=== PATIENT | male | born 2005 | race American Indian/Alaskan Native ===

== ENCOUNTER 2025-06-27 00:05 | Emergency (ER) | payer MEDICAID, SELFPAY ==
[2025-06-27 00:07] VITALS: BMI 27.3
--- NOTE | 2025-06-27 00:15 | EKG_ITS ---
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
[2025-06-27 00:28] VITALS: BP 134/74; PULSE 58; RESP 18; TEMP 36.8; O2SAT 97
--- NOTE | 2025-06-27 01:11 | EDNOTE_ITS ---
ED Anxiety RME/HPI General Chief Complaint: General Adult/Misc Complain Stated Complaint: NUMBNESS R SHOULDER AND R CHEST Time Seen by Provider: 06/27/25 01:09 Arrival date/time: 06/27/25 00:05 20M with history of anxiety presents to ED with 1 day of intermittent R chest pain/tightness and RUE numbness/tingling. There is also some RLE numbness/tingling. Finally, there is some ab pain and N/V, as well as shakiness. Patient states this all started while playing video games. No trigger except for increased stress in life recently. Patient feels better now compared to onset several hours ago. Limitations: no limitations Related Data Allergies Allergy/AdvReac Type Severity Reaction Status Date / Time NKA* Allergy Uncoded 06/27/25 00:12 Review of Systems Review of Systems Systems Reviewed: All systems reviewed, normal except as documented Constitutional Constitutional: Reports system reviewed and no additional complaints, except as documented, Denies fever(s) and Denies headache(s) ENT Ears, Nose, Mouth, and Throat: Denies disequilibrium and Denies headache(s) Cardiovascular Cardiovascular: Reports system reviewed and no additional complaints, except as documented, Reports as per HPI, Reports chest pain and Denies dyspnea Respiratory Respiratory: Reports system reviewed and no additional complaints, except as documented, Denies cough and Denies dyspnea Gastrointestinal Gastrointestinal: Reports system reviewed and no additional complaints, except as documented, Reports as per HPI, Reports abdominal pain, Reports nausea and Reports vomiting Musculoskeletal Musculoskeletal: Reports numbness and Reports tingling Neurologic Neurologic: Reports system reviewed and no additional complaints, except as documented, Reports as per HPI, Denies confusion, Denies disequilibrium, Denies headache(s), Reports numbness and Reports tingling Psychiatric Psychiatric: Denies confusion Past Medical History Social History SMOKING STATUS: Never smoker ED Exam General Limitations: Present no limitations General appearance: Present alert, in no apparent distress and anxious (very) Head Head exam: Present atraumatic Eye Eye exam: Present normal appearance, PERRL and EOMI ENT ENT exam: Present normal exam, normal oropharynx and mucous membranes moist Neck Neck exam: Present normal inspection, full ROM and trachea midline Chest Chest inspection: Present normal inspection and symmetric chest wall rise Respiratory Respiratory exam: Present normal lung sounds bilaterally Cardiovascular Cardiovascular exam: Present regular rate, normal rhythm and normal heart sounds Abdominal Exam Abdominal exam: Present soft and normal bowel sounds Extremities Exam Extremities exam: Present normal inspection and full ROM Back Exam Back exam: Present normal inspection and full ROM Neurological Exam Neurological exam: Present alert, oriented X3 and CN II-XII intact Psychiatric Psychiatric exam: Present normal affect and normal mood Skin Skin exam: Present warm, dry, intact and normal color Course Quality Measures none Orders Category Date Time Status EKG (ED ONLY) *Do not use* NOW Care 06/27/25 00:15 Completed EKG (ED Only) Stat Exams 06/27/25 00:15 Draft Diazepam [Valium] Med 06/27/25 01:09 Once 5 mg PO X1 ONE Vital Signs Vital signs: Vital Signs Temperature 98.3 F 06/27/25 00:28 Pulse Rate 58 L 06/27/25 00:28 Respiratory Rate 18 06/27/25 00:28 Blood Pressure 134/74 H 06/27/25 00:28 Pulse Oximetry (%) 97 06/27/25 00:28 Oxygen Delivery Method Room Air 06/27/25 00:28 Anxiety MDM Narrative MDM Narrative: 20M with history of anxiety presents to ED with 1 day of intermittent R chest pain/tightness and RUE numbness/tingling. There is also some RLE numbness/tingling. Finally, there is some ab pain and N/V, as well as shakiness. Patient states this all started while playing video games. No trigger except for increased stress in life recently. Patient feels better now compared to onset several hours ago. Physical exam reveals normal pupil response and EOM. CN II-XII grossly intact. Neg pronator drift. Speech normal. Gait normal. Clear lungs and normal WOB. RRR. Patient is afebrile, alert, but very anxious. EKG is sinus flor of 58. Valium improved symptoms. Patient data External records reviewed:: [facility] previous records Clinical information provided by:: patient Social determinants that could affect healthcare access:: mental health Patient has the following chronic illnesses:: anxiety How is presenting disease/condition affected by chronic disease/condition?: caused by Evaluation data The following diagnostics were reviewed and interpreted by me:: EKG tracing(s) Lab and/or radiology exams considered but not ordered:: ordered Interpretation Summary: above Medications / Prescriptions Medications or Prescriptions considered but not ordered:: ordered Medication administrations:: Medication Administration History Diazepam (Diazepam 5 Mg Tablet) 5 mg PO X1 ONE Stop: 06/27/25 01:10 Consultations Consultation(s) initiated? (list below): No Diagnosis Differential diagnosis anxiety: hyperventilation, panic disorder and acute anxiety Most likely diagnosis given after review of the tests above:: panic attack Admission Indicated Admission indicated?: not indicated Admission Request Was there a request for admission?: No Disposition Plan Disposition Plan: Discharge Discharge Attestation Discharge Attestation: The patient and all family members were given an opportunity to ask questions and understood the discharge instructions. Discharge instructions specifically effects, indications for sooner follow up or return to the emergency department, and the expected course of current diagnosis. Patient condition: Stable Discharge Plan Plan Patient Disposition: HOME (Self Care) Discharge Disposition comment: Stable Prescriptions/Referrals Referrals: George Mckeon PA-C [Primary Care Provider] - In 1 week Problem List Clinical Impression: Panic attack Patient/Caregiver Discharge Instructions Education Materials: Your Body's Response to Anxiety, Panic Disorder Tx, ED Panic Attack Additional Instructions: Please follow-up with PCP within 24-48 hours and return immediately if symptoms worsen. Print Language: Bermudian Stand Alone Forms: Patient Portal Info Letter MICHAEL Supervising Physician MICHAEL Supervising Physician: Dr. Bah
[2025-06-27 01:39] VITALS: BP 124/58; PULSE 70; RESP 14; TEMP 37; O2SAT 99
[2025-06-27] MEDS: DIAZEPAM 5 MG TABLET PO (01:41)
== END 2025-06-27 02:47 | disposition home or self-care (01) ==
PROVIDERS: Emergency Provider Emergency Medicine; PCP Physician Assistant
DX: F41.0 Panic disorder [episodic paroxysmal anxiety] (principal); R00.1 Bradycardia, unspecified
CPT/HCPCS: 93005; 99283; A9270

== ENCOUNTER 2025-06-27 17:53 | Emergency (ER) | payer MEDICAID, SELFPAY ==
--- NOTE | 2025-06-27 18:02 | EDNOTE_ITS ---
ED General RME/HPI General Chief complaint: Nausea/Vomiting/Diarrhea Stated complaint: NAUSEA AND VOMITING Time Seen by Provider: 06/27/25 18:01 Arrival date/time: 06/27/25 17:53 CC: Nausea vomit HPI patient presents to the ER via EMS who report active vomiting at the [facility], the patient is on hydroxyzine and famotidine secondary to nausea and vomiting from anxiety. Patient was seen here yesterday, then followed up in the clinic after signing out from this facility AMA took the medicines promptly threw up and called 911 currently the patient is awake alert oriented complaining of chest pressure EMS reports stable vital signs no tachycardia patient is awake alert oriented not in any acute distress. Related Data Allergies Allergy/AdvReac Type Severity Reaction Status Date / Time No Known Allergies Allergy Verified 06/30/25 23:34 Review of Systems Review of Systems Narrative Review of Systems: GEN: No fever, no chills, no weight loss EYES: No discharge, no visual changes, no pain HEENT: No ear pain, no congestion, no sore throat PULM: No shortness of breath, no cough, no congestion CV: No chest pain, no dyspnea on exertion, no palpitations GI: + nausea, + vomiting, no diarrhea, no pain, no constipation : No frequency, no urgency, no dysuria MUSC/SKEL: No joint pain, no back pain SKIN: No rash PSYCH: No hallucinations, no depression HEME/LYMPH: No easy bleeding or bruising tendencies NEURO: No weakness, no headache Past Medical History Social History SMOKING STATUS: Never smoker ED Exam Narrative Physical exam: [General: Not in any acute distress Head normocephalic HEENT: Within acceptable limits Neck is supple nontender Chest equal chest rise nontender to palpation Respiratory: Clear to auscultation no wheezes crackles or rubs CV: Rate rhythm is regular no murmurs rubs or clicks Abdomen is soft nontender no masses positive bowel sounds all 4 quadrants Back: No CVA tenderness no spinous process tenderness from cervical spine thoracic and lumbar spine Skin: Intact no petechiae rash induration ulceration or crepitus Extremities: Moving all extremity against resistance cap refill less than 2 seconds neurosensory intact Neuro: Awake alert oriented x3 Glascow coma 15 no focal deficits] Course Course Course Narrative: Reexamination of this patient at 2100 in room 15, the patient has become all of a sudden very anxious, stating he is feeling chills, states that he has nausea all over his body . Patient is awake alert oriented laboratory results are gr ossly unremarkable this time to give him antianxiety medicine. Patient stops all of his and takes once he is in the directed subject specific conversation regarding himself. This was witnessed by his sister at bedside. In addition to his behavior may be attributed to cannabis induced hyperemesis. Quality Measures none Orders Category Date Time Status CBC Stat Lab 06/27/25 18:21 Completed CMP [Comprehensive Metabolic Panel] Stat Lab 06/27/25 18:21 Completed Drug Screen,Urine Stat Lab 06/27/25 18:47 Completed LORazepam [Ativan] Med 06/27/25 21:00 Discontinued 0.5 mg PO X1 ONE Vital Signs Vital signs: Vital Signs Temperature 98.1 F 06/27/25 18:07 Pulse Rate 50 L 06/27/25 18:07 Respiratory Rate 18 06/27/25 18:07 Blood Pressure 120/69 06/27/25 18:07 Pulse Oximetry (%) 98 06/27/25 18:07 Oxygen Delivery Method Room Air 06/27/25 18:07 Discharge Plan Plan Patient Disposition: HOME (Self Care) Patient condition on transfer: Stable Prescriptions/Referrals Referrals: Jeffy Agarwal MD [Physician] - In 1 week No Primary/Family,Physician [Primary Care Provider] - In 1 week Problem List Clinical Impression: Panic attack Patient/Caregiver Discharge Instructions Education Materials: ED Anxiety Reaction Additional Instructions: Take the medicines prescribed by your clinic. If there is a worsening of symptoms follow-up with your primary care doctor Print Language: Pashto Stand Alone Forms: Sabiha Award Info., Work/School Release, Patient Portal Info Letter PA/EXECUTIVE CHEF Supervising Physician PA/EXECUTIVE CHEF Supervising Physician: Shaun Bradshaw ENP [facility] Clinical Information Provided by patient and EMS Medical Records Reviewed [facility] and EMS Meds/Rx Considered, not Ordered None Labs/Rad/Tests considered, not Ordered None Chronic Illness/Social Conditions which may negatively complicate care or outcome(s)-explain: None or not applicable EKG EKG not done Lab Interpretation Labs: interpreted by il Lab(s) interpretation(s): CBC shows a leukocytosis of 11.5 no other anemia thrombocytopenia CMP shows no significant electrolyte imbalances renal impairment transaminitis or T. bili elevation. Tox is positive for benzos and marijuana. Medication Administration(s) Medication Administration History Discontinued Medications Lorazepam (Lorazepam 0.5 Mg Tablet) 0.5 mg PO X1 ONE Stop: 06/27/25 21:01 Last Admin: 06/27/25 21:06 Dose: 0.5 mg Documented By: CHRISTEL
[2025-06-27 18:03] VITALS: PULSE 60; RESP 16; O2SAT 99
[2025-06-27 18:07] VITALS: BP 120/69; PULSE 50; RESP 18; TEMP 36.7; O2SAT 98
[2025-06-27 18:08] VITALS: BMI 27.1
[2025-06-27 18:28] LABS: Basophils # (Auto) 0.0 Thou/mm3 (0.0-0.2); Basophils % (Auto) 0 % (0-2.5); Eosinophils # (Auto) 0.0 Thou/mm3 (0.0-0.5); Eosinophils % (Auto) 0 % (0-10); Hematocrit 46.1 % (41.0-53.0); Hemoglobin 15.5 g/dL (13.5-16.0); Immature Granulocytes Auto 0.02 Thou/mm3 (0.00-0.00); Lymphocytes # (Auto) 1.2 Thou/mm3 (1.0-4.8); Lymphocytes % (Auto) 11 % (10-50); Mean Corpuscular HGB Conc 33.6 g/dl (31.0-37.0); Mean Corpuscular Hemoglobin 29.4 pg (25.0-35.0); Mean Corpuscular Volume 87 fL (80-100); Monocytes # (Auto) 0.7 Thou/mm3 (0.0-0.8); Monocytes % (Auto) 6 % (0-12); Neutrophils # (Auto) 9.6 Thou/mm3 (1.8-7.7); Neutrophils % (Auto) 83 % (37-80); Nucleated Red Blood Cell # 0.00 Thou/mm3 (0.00-0.00); Nucleated Red Blood Cell % 0 /100 WBC (0); Platelet Count 259 Thou/mm3 (140-440); RDW Standard Deviation 42.1 fL (35.1-43.9); Red Blood Count 5.28 Miln/mm3 (4.50-5.90); White Blood Count 11.5 Thou/mm3 (4.5-11.0)
[2025-06-27 19:05] LABS: Alanine Aminotransferase 35 U/L (10-49); Albumin, Serum 5.4 gm/dL (3.5-5.0); Albumin/Globulin Ratio 1.7 (1.2-2.2); Alkaline Phosphatase 116 U/L (46-116); Anion Gap 12 (7-16); Aspartate Amino Transferase 22 U/L (0-34); BUN/Creatinine Ratio 5 Ratio (12-20); Bilirubin,Total 1.0 mg/dL (0.3-1.2); Blood Urea Nitrogen < 5 mg/dL (9-23); Calcium 10.9 mg/dL (8.3-10.6); Calcium (Corrected) 10.9 mg/dL (8.5-10.1); Carbon Dioxide 24.2 mMol/L (20.0-31.0); Chloride 107 mMol/L (98-107); Creatinine (Component) 1.0 mg/dL (0.6-1.3); Estimated Creatinine Clearance 117.8 mL/min (>60); Globulin 3.1 gm/dL (2.3-3.5); Glucose 97 mg/dL (74-106); Osmolality,Calculated 282 (275-295); Potassium 4.2 mMol/L (3.4-5.1); Sodium 143 mMol/L (136-145); Total Protein 8.5 gm/dL (5.7-8.2); eGFR > 60 See Note
[2025-06-27 19:49] LABS: Amphetamine/Methamp Scrn,U Negative (Negative); Barbiturate Screen,Urine Negative (Negative); Benzodiazepines Screen,Urine Positive (Negative); Benzoylecgonine Screen, Ur Negative (Negative); Fentanyl Screen,Urine Negative (Negative); Opiate Screen,Urine Negative (Negative); THC Screen,Urine Positive (Negative)
[2025-06-27 20:53] VITALS: BP 124/71; PULSE 60; RESP 18; TEMP 36.6; O2SAT 100
--- NOTE | 2025-06-27 21:16 | PC.NURSE ---
went to give pt d/c instructions he started to have another panic attack stated medication was given yesterday advised he was also prescribed medication that he hasnt taken advised to also take that medication. spoke danielle robin hill advised for him to jomar medication and follow up with primary he was stating what if meds dont work i advised he can always come back but to given them a chance
== END 2025-06-27 21:14 | disposition home or self-care (01) ==
PROVIDERS: Registered Nurse General Practice; Emergency Provider Emergency Medicine
DX: F41.0 Panic disorder [episodic paroxysmal anxiety] (principal)
CPT/HCPCS: 36415; 80053; 80307; 85025; 99283; A9270

== ENCOUNTER 2025-06-30 23:19 | Emergency (ER) | payer MEDICAID, SELFPAY ==
[2025-06-30 23:26] VITALS: BP 128/82; PULSE 64; RESP 18; TEMP 36.8; O2SAT 100
[2025-06-30 23:58] VITALS: BMI 26.1
--- NOTE | 2025-07-01 00:16 | XR_ITS ---
Examination: PA chest single view Technique: Upright PA chest single view Date and time: June 30, 2025, 0026 hrs. Indications: Shortness of breath chest pain today Findings: Normal heart size. Lungs are clear. The osseous structures are intact Impression: No active disease.
--- NOTE | 2025-07-01 00:21 | EDNOTE_ITS ---
ED Chest Pain RME/HPI General Chief Complaint: Chest Pain Stated Complaint: CHEST TIGHTNESS Time Seen by Provider: 07/01/25 00:15 Arrival date/time: 06/30/25 23:19 20M with history of psych/drugs presents to ED with several days of intermittent CP and SOB. Patient has had multiple visits here and at [facility] for this recently. Limitations: no limitations Related Data Allergies Allergy/AdvReac Type Severity Reaction Status Date / Time No Known Allergies Allergy Verified 06/30/25 23:34 Review of Systems Review of Systems Systems Reviewed: All systems reviewed, normal except as documented Constitutional Constitutional: Reports system reviewed and no additional complaints, except as documented, Denies fever(s) and Denies headache(s) ENT Ears, Nose, Mouth, and Throat: Denies disequilibrium and Denies headache(s) Cardiovascular Cardiovascular: Reports system reviewed and no additional complaints, except as documented, Reports as per HPI, Reports chest pain and Reports dyspnea Respiratory Respiratory: Reports system reviewed and no additional complaints, except as documented, Denies cough and Reports dyspnea Gastrointestinal Gastrointestinal: Reports system reviewed and no additional complaints, except as documented, Denies abdominal pain, Denies nausea and Denies vomiting Neurologic Neurologic: Reports system reviewed and no additional complaints, except as documented, Denies confusion, Denies disequilibrium and Denies headache(s) Psychiatric Psychiatric: Denies confusion Past Medical History Social History SMOKING STATUS: Current some day smoker ED Exam General Limitations: Present no limitations General appearance: Present alert, in no apparent distress and anxious (crying) Head Head exam: Present atraumatic Neck Neck exam: Present normal inspection, full ROM and trachea midline Chest Chest inspection: Present normal inspection and symmetric chest wall rise Neurological Exam Neurological exam: Present alert, oriented X3 and CN II-XII intact Psychiatric Psychiatric exam: Present normal affect Skin Skin exam: Present warm, dry, intact and normal color Course Quality Measures none Orders Category Date Time Status EKG (ED ONLY) *Do not use* NOW Care 06/30/25 23:33 Completed EKG (ED Only) Stat Exams 06/30/25 23:32 Ordered US gall bladder Stat Exams 07/01/25 01:58 Taken XR chest 1V portable Stat Exams 07/01/25 00:16 Taken Alcohol, Blood Medical Stat Lab 07/01/25 01:15 Completed CBC Stat Lab 07/01/25 01:15 Completed Comprehensive Metabolic Panel Stat Lab 07/01/25 01:15 Completed D-Dimer Stat Lab 07/01/25 01:15 Completed Lipase Stat Lab 07/01/25 01:15 Completed Troponin I Stat Lab 07/01/25 01:15 Completed Diazepam [Valium] Med 07/01/25 00:16 Discontinued 5 mg PO X1 ONE Vital Signs Vital signs: Vital Signs Temperature 98.3 F 06/30/25 23:26 Pulse Rate 64 06/30/25 23:26 Respiratory Rate 18 06/30/25 23:26 Blood Pressure 128/82 06/30/25 23:26 Pulse Oximetry (%) 100 06/30/25 23:26 Oxygen Delivery Method Room Air 06/30/25 23:26 O2 at 100% on RA and WNLs Chest Pain MDM Narrative MDM Narrative:: 20M with history of psych/drugs presents to ED with several days of intermittent CP and SOB. Patient has had multiple visits here and at [facility] for this recently. Physical exam reveals normal WOB. Patients is afebrile, alert, but anxious/crying. EKG is NSR. Wet CXR read unremarkable pending official report. No leukocytosis. Normal trop and D-dimer. CMP remarkable for elevated LFTs and bili compared to 3 days ago. US Telerad read unremarkable. Valium improved symptoms. Counseled to return on Thursday morning for repeat CMP and possible MRCP. Patient data External records reviewed:: [facility] previous records Clinical information provided by:: patient Social determinants that could affect healthcare access:: mental health Patient has the following chronic illnesses:: anxiety/drug How is presenting disease/condition affected by chronic disease/condition?: exacerbated by Evaluation data The following diagnostics were reviewed and interpreted by me:: lab results, radiology exam(s) and EKG tracing(s) Lab and/or radiology exams considered but not ordered:: ordered Interpretation Summary: above Medications / Prescriptions Medications or Prescriptions considered but not ordered:: ordered Medication administrations:: Medication Administration History Discontinued Medications Diazepam (Diazepam 5 Mg Tablet) 5 mg PO X1 ONE Stop: 07/01/25 00:17 Last Admin: 07/01/25 00:33 Dose: 5 mg Documented By: CVL above Consultations Consultation(s) initiated? (list below): No Diagnosis Chest Pain Differential Diagnosis: fracture of rib, pneumothorax, stable angina, unstable angina pectoris, atypical chest pain, st elevation myocardial infarction, costochondritis, chest pain, biliary colic and other (PE, anxiety/panic attack, CBD stone, elevated bili) Most likely diagnosis given after review of the tests above:: panic attack and elevated bilirubin Admission Indicated Admission indicated?: not indicated Admission Request Was there a request for admission?: No Disposition Plan Disposition Plan: Discharge Discharge Attestation Discharge Attestation: The patient and all family members were given an opportunity to ask questions and understood the discharge instructions. Discharge instructions specifically effects, indications for sooner follow up or return to the emergency department, and the expected course of current diagnosis. Patient condition: Stable Discharge Plan Plan Patient Disposition: HOME (Self Care) Discharge Disposition comment: Stable Prescriptions/Referrals Referrals: George Mckeon PA-C [Primary Care Provider] - In 1 week Problem List Clinical Impression: Panic attack, Elevated bilirubin Patient/Caregiver Discharge Instructions Education Materials: Total Bilirubin (Blood), ED Panic Attack Additional Instructions: Please follow-up with PCP within 24-48 hours and return immediately if symptoms worsen. Return on Thursday for repeat CMP and possible MRCP. Print Language: Cameroonian Stand Alone Forms: Patient Portal Info Letter EH/KASHIF Supervising Physician MICHAEL Supervising Physician: Dr. Brown
[2025-07-01] MEDS: DIAZEPAM 5 MG TABLET PO (00:33)
[2025-07-01 01:35] LABS: Basophils # (Auto) 0.1 Thou/mm3 (0.0-0.2); Basophils % (Auto) 1 % (0-2.5); Eosinophils # (Auto) 0.1 Thou/mm3 (0.0-0.5); Eosinophils % (Auto) 1 % (0-10); Hematocrit 46.9 % (41.0-53.0); Hemoglobin 15.9 g/dL (13.5-16.0); Immature Granulocytes Auto 0.02 Thou/mm3 (0.00-0.00); Lymphocytes # (Auto) 1.9 Thou/mm3 (1.0-4.8); Lymphocytes % (Auto) 20 % (10-50); Mean Corpuscular HGB Conc 33.9 g/dl (31.0-37.0); Mean Corpuscular Hemoglobin 29.3 pg (25.0-35.0); Mean Corpuscular Volume 87 fL (80-100); Monocytes # (Auto) 0.9 Thou/mm3 (0.0-0.8); Monocytes % (Auto) 9 % (0-12); Neutrophils # (Auto) 6.8 Thou/mm3 (1.8-7.7); Neutrophils % (Auto) 70 % (37-80); Nucleated Red Blood Cell # 0.00 Thou/mm3 (0.00-0.00); Nucleated Red Blood Cell % 0 /100 WBC (0); Platelet Count 246 Thou/mm3 (140-440); RDW Standard Deviation 40.3 fL (35.1-43.9); Red Blood Count 5.42 Miln/mm3 (4.50-5.90); White Blood Count 9.7 Thou/mm3 (4.5-11.0)
[2025-07-01 01:52] LABS: Alanine Aminotransferase 130 U/L (10-49); Albumin, Serum 5.3 gm/dL (3.5-5.0); Albumin/Globulin Ratio 1.8 (1.2-2.2); Alkaline Phosphatase 134 U/L (46-116); Anion Gap 16 (7-16); Aspartate Amino Transferase 84 U/L (0-34); BUN/Creatinine Ratio 6 Ratio (12-20); Bilirubin,Total 1.8 mg/dL (0.3-1.2); Blood Urea Nitrogen 7 mg/dL (9-23); Calcium 10.5 mg/dL (8.3-10.6); Calcium (Corrected) 10.5 mg/dL (8.5-10.1); Carbon Dioxide 24.7 mMol/L (20.0-31.0); Chloride 100 mMol/L (98-107); Creatinine (Component) 1.1 mg/dL (0.6-1.3); Estimated Creatinine Clearance 107.1 mL/min (>60); Globulin 2.9 gm/dL (2.3-3.5); Glucose 77 mg/dL (74-106); Osmolality,Calculated 278 (275-295); Potassium 3.5 mMol/L (3.4-5.1); Sodium 141 mMol/L (136-145); Total Protein 8.2 gm/dL (5.7-8.2); eGFR > 60 See Note
--- NOTE | 2025-07-01 01:58 | XR_ITS ---
Examination: Abdomen sonogram, Limited Date and time of exam: July 01 thousand 25, 0300 hrs. Indications: Chest pain nausea vomiting beginning 5 days ago Technique: Real-time tarango scale transabdominal sonographic images of the upper abdomen obtained. Findings: Gallbladder sludge. Negative for gallstones, normal gallbladder wall. Normal common bile duct 0.3 cm. Pancreatic head 2.5 cm Liver 15.9 cm lobular contour no focal liver lesions Normal hepatopedal portal venous flow Patent IVC Impression: Negative for cholelithiasis, negative for cholecystitis Normal common bile duct
[2025-07-01 02:02] LABS: D-Dimer < 250 ng/mL (<600)
[2025-07-01 02:12] LABS: Troponin I < 0.002 ng/mL (0.0-0.045)
[2025-07-01 02:55] LABS: Alcohol, Blood Medical < 3.0 mg/dL (0-10.0); Lipase 29 U/L (12-53)
--- NOTE | 2025-07-01 04:20 | PRELIM_ITS ---
Right upper quadrant abdominal ultrasound. July 01, 2025 0300 hours Clinical history: Elevated LFTs and bili. Technique: Grayscale and color flow images of the right upper quadrant are provided. Hepatic and portal veins were also imaged with color flow images. Comparison: No prior study is available for comparison. Findings: The liver measures 15.9 cm and is normal in echogenicity with mildly lobular contour of the liver. No intrahepatic biliary ductal dilatation. The main portal vein is patent and demonstrates hepatopetal flow. Minimal sludge is demonstrated in the gallbladder. No gallbladder calculus, wall thickening or pericholecystic fluid is demonstrated. Luna sign is not commented upon by the technologist at the time of interpretation. The common bile duct is normal in caliber at 3 mm. The pancreas is unremarkable to the extent visualized. Impression: Minimal gallbladder sludge. No sonographic evidence of cholelithiasis, acute cholecystitis or biliary obstruction. Mildly lobular contour of the liver. Report Electronically Signed By: Ankush Abraham 07/01/2025 4:20:31 AM [EST]
[2025-07-01 05:12] VITALS: RESP 18
== END 2025-07-01 05:12 | disposition home or self-care (01) ==
PROVIDERS: Physician Assistant; Emergency Provider Emergency Medicine; PCP Physician Assistant
DX: F41.0 Panic disorder [episodic paroxysmal anxiety] (principal); R17 Unspecified jaundice; R07.89 Other chest pain; R79.89 Other specified abnormal findings of blood chemistry
CPT/HCPCS: 36415; 71045; 76705; 80053; 80320; 83690; 84484; 85025; 85379; 93005; 99283; A9270; G0480

== ENCOUNTER 2025-07-03 15:10 | Emergency (ER) | payer MEDICAID, SELFPAY ==
[2025-07-03 15:21] VITALS: BP 146/85; PULSE 56; RESP 18; TEMP 36.6; O2SAT 96
--- NOTE | 2025-07-03 15:35 | PD.EDABDPN ---
ED Abdominal Pain RME/HPI General Chief Complaint: General Adult/Misc Complain Stated complaint: RETURNED FOR MRCP Time seen by provider: 07/03/25 15:12 Arrival date/time: 07/03/25 15:10 20-year-old male with no known medical history presents to the emergency room for repeat blood work after having an elevated bilirubin level when seen here 2 days ago. Source: patient Mode of arrival: ambulatory Limitations: no limitations Related Data Allergies Allergy/AdvReac Type Severity Reaction Status Date / Time No Known Allergies Allergy Verified 07/03/25 15:14 Review of Systems Review of Systems Systems Reviewed: All systems reviewed, normal except as documented Constitutional Constitutional: Reports system reviewed and no additional complaints, except as documented, Denies fatigue, Denies fever(s), Denies headache(s) and Denies weakness Eyes Eyes: Reports system reviewed and no additional complaints, except as documented, Denies blurry vision and Denies change in vision ENT Ears, Nose, Mouth, and Throat: Reports system reviewed and no additional complaints, except as documented, Denies otalgia, Denies headache(s), Denies nasal congestion, Denies throat swelling and Denies vertigo Cardiovascular Cardiovascular: Reports system reviewed and no additional complaints, except as documented, Denies chest pain, Denies dyspnea and Denies dyspnea on exertion Respiratory Respiratory: Reports system reviewed and no additional complaints, except as documented, Denies chest congestion, Denies cough, Denies dyspnea, Denies dyspnea on exertion and Denies wheezing Gastrointestinal Gastrointestinal: Reports system reviewed and no additional complaints, except as documented, Denies abdominal pain, Denies cramping, Denies nausea and Denies vomiting Genitourinary Genitourinary: Reports system reviewed and no additional complaints, except as documented, Denies dysuria and Denies hematuria Musculoskeletal Musculoskeletal: Reports system reviewed and no additional complaints, except as documented and Denies back pain Integumentary/Breasts Skin/Breast: Reports system reviewed and no additional complaints, except as documented and Denies wounds Neurologic Neurologic: Reports system reviewed and no additional complaints, except as documented, Denies confusion, Denies headache(s), Denies lack of coordination, Denies vertigo and Denies weakness Psychiatric Psychiatric: Reports system reviewed and no additional complaints, except as documented, Denies anxiety, Denies confusion, Denies depression, Denies paranoia, Denies suicidal ideation and Denies tactile hallucinations Endocrine Endocrine: Reports system reviewed and no additional complaints, except as documented and Denies fatigue Hematologic/Lymphatic Hematologic/Lymphatic: Reports system reviewed and no additional complaints, except as documented and Denies lymphadenopathy Allergic/Immunologic Allergic/Immunologic: Reports system reviewed and no additional complaints, except as documented, Denies throat swelling, Denies urticaria and Denies wheezing Past Medical History Social History SMOKING STATUS: Former smoker ED Exam General Limitations: Present no limitations General appearance: Present alert and in no apparent distress Head Head exam: Present atraumatic Eye Eye exam: Present normal appearance, PERRL and EOMI ENT ENT exam: Present normal exam, normal oropharynx and mucous membranes moist Neck Neck exam: Present normal inspection, full ROM and trachea midline Chest Chest inspection: Present normal inspection and symmetric chest wall rise Respiratory Respiratory exam: Present normal lung sounds bilaterally Cardiovascular Cardiovascular exam: Present regular rate, normal rhythm and normal heart sounds Abdominal Exam Abdominal exam: Present soft and normal bowel sounds; Absent distention, tenderness, guarding, rebound or rigidity Extremities Exam Extremities exam: Present normal inspection and full ROM Back Exam Back exam: Present normal inspection and full ROM Neurological Exam Neurological exam: Present alert, oriented X3 and CN II-XII intact Psychiatric Psychiatric exam: Present normal affect and normal mood Skin Skin exam: Present warm, dry, intact and normal color Course Quality Measures none Orders Category Date Time Status CBC Stat Lab 07/03/25 15:40 Completed CMP [Comprehensive Metabolic Panel] Stat Lab 07/03/25 15:40 Completed Drug Screen,Urine Stat Lab 07/03/25 16:07 Received Lipase Stat Lab 07/03/25 15:40 Completed UA, C/S IF [Urinalysis, C/S if Indicated] Stat Lab 07/03/25 16:07 Completed Vital Signs Vital signs: Vital Signs Temperature 97.8 F 07/03/25 15:21 Pulse Rate 56 L 07/03/25 15:21 Respiratory Rate 18 07/03/25 15:21 Blood Pressure 146/85 H 07/03/25 15:21 Pulse Oximetry (%) 96 07/03/25 15:21 Oxygen Delivery Method Room Air 07/03/25 15:21 Abdominal Pain MDM MDM Narrative MDM Narrative:: 20-year-old male with no known medical history presents to the emergency room for repeat blood work after having an elevated bilirubin level when seen here 2 days ago. Patient is hemodynamically stable and in no apparent distress Physical examination shows a soft nontender abdomen. There is no jaundice to the sclera or anywhere else in the body. Patient was seen here 3 days ago and was told to return today due to an elevated bilirubin level. During that time the patient was diagnosed with cannabinoid hyperemesis syndrome and the patient had been vomiting multiple times throughout the day. Today the patient states he has not vomited in the last 2 days. CBC CMP were all within normal limits. Bilirubin was within normal limits. I reviewed the ultrasound and there was no gallstones. At this time there is no need for an MRCP. Patient was discharged and educated to follow-up with primary care provider in the next 24 to 48 hours and return to the emergency room for any evidence of worsening signs or symptoms Patient data External records reviewed:: [facility] previous records Clinical information provided by:: patient Social determinants that could affect healthcare access:: none Patient has the following chronic illnesses:: No chronic illness How is presenting disease/condition affected by chronic disease/condition?: no chronic disease Evaluation data The following diagnostics were reviewed and interpreted by me:: lab results and radiology exam(s) Lab and/or radiology exams considered but not ordered:: Labs and radiology exams considered and ordered Interpretation Summary: N/A Medications / Prescriptions Medications or Prescriptions considered but not ordered:: No medication given Medication administrations:: No medication given Consultations Consultation(s) initiated? (list below): No Diagnosis Differential diagnosis abdominal pain: abdominal pain, acute appendicitis, constipation, gastroenteritis and pancreatitis Most likely diagnosis given after review of the tests above:: Elevated bilirubin level Admission Indicated Admission indicated?: not indicated Admission Request Was there a request for admission?: No Disposition Plan Disposition Plan: Discharge Discharge Attestation Discharge Attestation: The patient and all family members were given an opportunity to ask questions and understood the discharge instructions. Discharge instructions specifically effects, indications for sooner follow up or return to the emergency department, and the expected course of current diagnosis. Patient condition: Stable Discharge Plan Plan Patient Disposition: HOME (Self Care) Discharge Disposition comment: Stable Prescriptions/Referrals Referrals: No Primary/Family,Physician [Primary Care Provider] - In 1 week Problem List Clinical Impression: Elevated bilirubin Patient/Caregiver Discharge Instructions Additional Instructions: Please follow-up with your primary care provider in the next 24 to 48 hours Blood work was completed and your bilirubin is within normal limits today. I believe during your last visit due to your vomiting you had an elevated bilirubin level. Today it is within normal limits and there is no need for an MRCP. For any evidence of worsening signs or symptoms return to the emergency room immediately Print Language: Belarusian Stand Alone Forms: Sabiha Award Info., Patient Portal Info Letter PA/PERSONAL PROPERTY APPRAISER Supervising Physician PA/PERSONAL PROPERTY APPRAISER Supervising Physician: Dr. Pizarro
[2025-07-03 16:00] LABS: Basophils # (Auto) 0.0 Thou/mm3 (0.0-0.2); Basophils % (Auto) 1 % (0-2.5); Eosinophils # (Auto) 0.1 Thou/mm3 (0.0-0.5); Eosinophils % (Auto) 1 % (0-10); Hematocrit 48.8 % (41.0-53.0); Hemoglobin 16.6 g/dL (13.5-16.0); Immature Granulocytes Auto 0.02 Thou/mm3 (0.00-0.00); Lymphocytes # (Auto) 1.5 Thou/mm3 (1.0-4.8); Lymphocytes % (Auto) 21 % (10-50); Mean Corpuscular HGB Conc 34.0 g/dl (31.0-37.0); Mean Corpuscular Hemoglobin 29.0 pg (25.0-35.0); Mean Corpuscular Volume 85 fL (80-100); Monocytes # (Auto) 0.8 Thou/mm3 (0.0-0.8); Monocytes % (Auto) 11 % (0-12); Neutrophils # (Auto) 4.7 Thou/mm3 (1.8-7.7); Neutrophils % (Auto) 66 % (37-80); Nucleated Red Blood Cell # 0.00 Thou/mm3 (0.00-0.00); Nucleated Red Blood Cell % 0 /100 WBC (0); Platelet Count 251 Thou/mm3 (140-440); RDW Standard Deviation 39.4 fL (35.1-43.9); Red Blood Count 5.73 Miln/mm3 (4.50-5.90); White Blood Count 7.1 Thou/mm3 (4.5-11.0)
[2025-07-03 16:12] LABS: Collection Type, Urine Clean Catch
[2025-07-03 16:21] LABS: Anion Gap 15 (7-16); BUN/Creatinine Ratio 6 Ratio (12-20); Blood Urea Nitrogen 6 mg/dL (9-23); Carbon Dioxide 25.0 mMol/L (20.0-31.0); Chloride 101 mMol/L (98-107); Creatinine (Component) 1.0 mg/dL (0.6-1.3); Estimated Creatinine Clearance 117.8 mL/min (>60); Glucose 95 mg/dL (74-106); Potassium 3.5 mMol/L (3.4-5.1); Sodium 141 mMol/L (136-145); eGFR > 60 See Note
[2025-07-03 16:22] LABS: Alanine Aminotransferase 86 U/L (10-49); Albumin, Serum 5.3 gm/dL (3.5-5.0); Albumin/Globulin Ratio 1.8 (1.2-2.2); Alkaline Phosphatase 136 U/L (46-116); Aspartate Amino Transferase 40 U/L (0-34); Bilirubin,Total 1.2 mg/dL (0.3-1.2); Calcium 10.5 mg/dL (8.3-10.6); Calcium (Corrected) 10.5 mg/dL (8.5-10.1); Globulin 3.0 gm/dL (2.3-3.5); Lipase 36 U/L (12-53); Osmolality,Calculated 278 (275-295); Total Protein 8.3 gm/dL (5.7-8.2)
[2025-07-03 16:38] LABS: Bacteria,Urine Rare; Bilirubin,Urine Negative (Negative); Blood,Urine Negative (Negative); Clarity,Urine Clear (Clear/Hazy); Color,Urine Yellow (Lt Yel-Yel); Culture Indicated,Urine Not Indicated; Glucose, Urine Negative (Negative); Ketones,Urine 2+ (Negative); Leukocyte Esterase,Urine Negative (Negative); Nitrite,Urine Negative (Negative); PH,Urine 6.0 (5.0-7.0); Protein,Urine 1+ (Neg - Trace); RBC,Urine 1 /hpf (0-3); Specific Gravity,Urine 1.030 (1.001-1.035); Squamous Epithelial Cell,Urine < 1 /hpf (0-5); Urobilinogen,Urine 4.0 mg/dL (0.0-1.0); WBC,Urine < 1 /hpf (0-5)
[2025-07-03 17:20] LABS: Amphetamine/Methamp Scrn,U Negative (Negative); Barbiturate Screen,Urine Negative (Negative); Benzodiazepines Screen,Urine Positive (Negative); Benzoylecgonine Screen, Ur Negative (Negative); Fentanyl Screen,Urine Negative (Negative); Opiate Screen,Urine Negative (Negative); THC Screen,Urine Positive (Negative)
== END 2025-07-03 17:09 | disposition home or self-care (01) ==
PROVIDERS: Nurse Practitioner Family; Emergency Provider Emergency Medicine
DX: R17 Unspecified jaundice (principal)
CPT/HCPCS: 36415; 80053; 80307; 81001; 83690; 85025; 99283

== ENCOUNTER 2025-10-18 00:13 | Emergency (ER) | payer MEDICAID, SELFPAY ==
[2025-10-18 00:15] VITALS: BMI 25.8
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
[2025-10-18 00:38] VITALS: BP 138/68; PULSE 70; RESP 18; TEMP 36.8; O2SAT 97
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
== END 2025-10-18 02:08 | disposition home or self-care (01) ==
LOC: SERX 06:07
PROVIDERS: Emergency Provider Emergency Medicine; PCP Physician Assistant
DX: S63.502A Unspecified sprain of left wrist, initial encounter (principal); S66.912A Strain of unspecified muscle, fascia and tendon at wrist and hand level, left hand, initial encounter; V86.95XA Unspecified occupant of 3- or 4- wheeled all-terrain vehicle (ATV) injured in nontraffic accident, initial encounter
CPT/HCPCS: 73110; 99282